=== PATIENT | male | born 1985 | race Asian ===

== ENCOUNTER 2023-05-12 12:03 | Emergency (ER) | payer OTHER ==
[~2023-05-12] VITALS: Ht 170.2 cm; Wt 71.9 kg
[2023-05-12 12:16] VITALS: BP 130/78; PULSE 67; RESP 18; TEMP 97.7; O2SAT 98
[2023-05-12] MEDS ORDERED: FLUORESCEIN OPTH STRIP 1 MG OP ONE (13:50)
[2023-05-12] MEDS ORDERED: TETRACAINE HCL/PF 0.5% OPTH 4 ML BTL OP ONE (13:50)
[2023-05-12] MEDS ORDERED: GLYC15SO9 OP (15:05)
== END 2023-05-12 15:28 | disposition home or self-care (01) ==
LOC: MED 12:03
DX: H10.9 Unspecified conjunctivitis (principal); R03.0 Elevated blood-pressure reading, without diagnosis of hypertension; Z79.899 Other long term (current) drug therapy
CPT/HCPCS: 99283

== ENCOUNTER 2023-11-03 10:50 | Emergency (ER) | payer OTHER ==
[~2023-11-03] VITALS: Ht 171.4 cm; Wt 73.9 kg
[~2023-11-03 10:50] MED LIST: GLYC15SO9 OP
[2023-11-03 10:54] VITALS: BP 137/96; PULSE 68; RESP 17; TEMP 97.7; O2SAT 98
[2023-11-03] MEDS ORDERED: LID5T TP (12:20)
[2023-11-03] MEDS ORDERED: NAPR-54 PO (12:20)
[2023-11-03] MEDS: KETOROLAC 30 MG/ML VIAL IM ONE (12:42)
== END 2023-11-03 12:47 | disposition home or self-care (01) ==
LOC: MED 10:50
DX: S93.491A Sprain of other ligament of right ankle, initial encounter (principal); Z79.899 Other long term (current) drug therapy; X58.XXXA Exposure to other specified factors, initial encounter; Y93.89 Activity, other specified; Y92.89 Other specified places as the place of occurrence of the external cause; Y99.8 Other external cause status
CPT/HCPCS: 73610; 96372; 99283; J1885

== ENCOUNTER 2024-02-23 22:32 | Emergency (ER) | payer OTHER ==
[~2024-02-23] VITALS: Ht 170.2 cm; Wt 70.3 kg
[~2024-02-23 22:32] MED LIST changes: +LID5T TP; +NAPR-337 PO
[2024-02-23 22:59] VITALS: BP 143/92; PULSE 68; RESP 16; TEMP 96.2; O2SAT 98
[2024-02-24 03:42] VITALS: BP 143/92; PULSE 68; RESP 16; TEMP 96.2; O2SAT 98
== END 2024-02-24 03:42 | disposition left against medical advice (07) ==
LOC: MED 22:32
DX: M79.675 Pain in left toe(s) (principal); Z53.21 Procedure and treatment not carried out due to patient leaving prior to being seen by health care provider
CPT/HCPCS: 73660